=== PATIENT | female | born 1975 | race Caucasian/White ===

== ENCOUNTER → 2017-04-04 | Outpatient (CLI) | payer OTHER ==
[~2017-04-04] MED LIST: LORTAB 5/500 501 TAB PO; NO HOME MEDICATIONS
== END ==
LOC: MC.RAD 04-02 08:20
DX: Z12.31 Encounter for screening mammogram for malignant neoplasm of breast (principal)

== ENCOUNTER → 2018-06-03 | Outpatient (CLI) | payer OTHER | LOC: MC.RAD 07:40 | DX: Z12.31 Encounter for screening mammogram for malignant neoplasm of breast (principal) ==

== ENCOUNTER → 2019-08-28 | Outpatient (CLI) | payer OTHER | LOC: MC.RAD 08:43 | DX: Z12.31 Encounter for screening mammogram for malignant neoplasm of breast (principal) ==

== ENCOUNTER → 2020-09-20 | Outpatient (CLI) | payer BC | LOC: MC.RAD 07:41 | DX: Z12.31 Encounter for screening mammogram for malignant neoplasm of breast (principal) ==

== ENCOUNTER 2021-05-03 08:07 | Day surgery (SDC) | payer BC ==
[~2021-05-03] VITALS: Ht 165.1 cm; Wt 72.2 kg
[2021-05-03] MEDS ORDERED: FLONASE NASAL S16 GM NS (08:34)
[2021-05-03] MEDS ORDERED: ZYRTEC ALLERGY10 MG PO (08:34)
[2021-05-03] MEDS ORDERED: PRIL40 PO (08:35)
[2021-05-03] MEDS ORDERED: VITAMIN D 400400 IU PO (08:35)
[2021-05-03] MEDS ORDERED: VITAMIN C500 MG PO (08:36)
[2021-05-03] MEDS ORDERED: NATURAL IRON65 MG (08:36)
[2021-05-03] MEDS ORDERED: COLACE 100100 MG/CAP PO (08:37)
--- NOTE | 2021-05-03 08:40 | NUR ---
PATIENT AMBULATED INTO ENDO UNIT ACCOMPANIED WALKING WITH STEADY GAIT. PATIENT IS ALERT AND ORIENTED X 4. CONSENT EXPLAINED AND PATIENT SIGNED. ASSESSMENT COMPLETED. LUNGS CTA. HEART S1S2 AND REGULAR. BOWEL SOUNDS HEARD. PEDAL PULSES +2. CALL LIGHT EXPLAINED AND PATIENT VOICED UNDERSTANDING.
[2021-05-03 08:46] VITALS: BP 100/66; PULSE 73; TEMP 97.7
[2021-05-03 09:35] VITALS: BP 113/80; PULSE 74; TEMP 97
--- NOTE | 2021-05-03 09:35 | NUR ---
PATIENT BROUGHT BACK TO ENDO ROOM 3 VIA CART. AMBULATED TO CHAIR WITHOUT DIFFICULTY. PLACED ON MONITORS, VITAL SIGNS STABLE. REPORT RECIEVED FROM JOSEFINA STEVE, ALL QUESTIONS ANSWERED. PATIENT REQUESTS WATER AT THIS TIME. DENIES PAIN OR NAUSEA. AT BEDSIDE TO DRIVE HOME. CALL DONALDSON WITHIN REACH. WILL CONTINUE TO MONITOR.
[2021-05-03 09:50] VITALS: BP 103/75; PULSE 67
--- NOTE | 2021-05-03 09:50 | NUR ---
TOLERATING FOOD AND DRINK WITHOUT DIFFICULTY. DR. SALCEDO AT BEDSIDE TO DISCUSS RESULTS. WILL CONTINUE TO MONITOR.
[2021-05-03 10:05] VITALS: BP 103/63; PULSE 58
--- NOTE | 2021-05-03 10:05 | NUR ---
VITAL SIGNS REMAIN STABLE. STATES SHE FEELS READY TO GO HOME. IV REMOVED, INTACT. PT TO GET DRESSED AT THIS TIME.
--- NOTE | 2021-05-03 10:10 | NUR ---
DISCHARGE INSTRUCTIONS REVIEWED WITH PATIENT AND . BROUGHT DOWN TO LOBBY VIA WHEEL CHAIR. TO BE DRIVE HOME BY .
[2021-05-03 12:45] VITALS: BP 135/72; PULSE 76
--- NOTE | 2021-05-03 12:46 | NUR ---
VSS ON ROOM AIR. PATIENT TALKING WITH . DENIES DISCOMFORT AND NAUSEA. PATIENT STATES LIGHTHEADEDNESS IS IMPROVING.
== END 2021-05-03 10:10 | disposition home or self-care (01) ==
LOC: SDCO 08:07
DX: K29.50 Unspecified chronic gastritis without bleeding (principal); K31.7 Polyp of stomach and duodenum; K21.9 Gastro-esophageal reflux disease without esophagitis; D50.9 Iron deficiency anemia, unspecified; Z79.899 Other long term (current) drug therapy; Z20.822 Contact with and (suspected) exposure to COVID-19
CPT/HCPCS: 32149

== ENCOUNTER → 2021-10-27 | Outpatient (CLI) | payer BC ==
[~2021-10-27] MED LIST changes: +COLACE 100100 MG/CAP PO; +FLONASE NASAL S16 GM NS; +NATURAL IRON65 MG; +PRIL40 PO; +VITAMIN C500 MG PO; +VITAMIN D 400400 IU PO; +ZYRTEC ALLERGY10 MG PO
== END ==
LOC: MC.RAD 13:30
DX: Z12.31 Encounter for screening mammogram for malignant neoplasm of breast (principal); N64.89 Other specified disorders of breast

== ENCOUNTER → 2021-10-31 | Outpatient (CLI) | payer BC | LOC: MC.RAD 12:55 | DX: N64.89 Other specified disorders of breast (principal) ==

== ENCOUNTER → 2021-11-21 | Outpatient (CLI) | payer BC | LOC: MC.RAD 07:55 | DX: Z12.31 Encounter for screening mammogram for malignant neoplasm of breast (principal) ==